=== PATIENT | male | born 1940 | race Caucasian/White ===

== ENCOUNTER 2018-10-29 10:57 | Emergency (ER) | payer MEDICARE ==
[~2018-10-29] VITALS: Ht 182.9 cm; Wt 100.0 kg
[~2018-10-29 10:57] MED LIST: ASPIRIN PO; CIPROFLOXACN500 MG PO; CLARITIN10 MG PO; GNP KRILL OIL O1 CAP PO; LEVOTHYROXIN150 MCG PO; LISINOPRIL20 MG PO; METOPROL TAR25 MG PO; NEXIUM20 MG PO; PERCOCET 5/321 COMBO PO; POTASSIUM GLUC550 M1 PO; PREDNISONE10 MG PO; SIMVASTATIN40 MG PO; TYLENOL # 31 TA1 PO; VENTOLIN HF1 IN; ZPAK PO
[2018-10-29 13:28] LABS: IMMATURE GRANULOCYTES 1.3 % (0.0-5.0); MEAN CORPUSCULAR HGB 28.4 pG CALC (26.0-32.0); MEAN CORPUSCULAR HGB CONC 33.6 g/L CALC (32.0-36.0); RED BLOOD COUNT 5.91 mill/uL (4.70-6.10); RED CELL DISTRI WIDTH 13.1 % (11.5-15.5)
[2018-10-29 13:36] LABS: HEMOGLOBIN 16.8 g/dl (14.0-18.0); MEAN CELL VOLUME 84.6 fL CALC (80.0-100.0)
[2018-10-29 13:44] LABS: ALBUMIN 3.9 g/dL (3.2-5.0); ALKALINE PHOSPHATASE 60 u/l (38-126); ANION GAP 14 (6-22 (CALC)); BILIRUBIN, TOTAL 0.7 mg/dL (0.0-1.4); BUN 18 mg/dL (8-23); BUN/CREATININE RATIO 14 (12-20 (CALC)); CARBON DIOXIDE 27 mmol/l (22-30); CHLORIDE 104 mmol/l (95-108); CREATININE 1.3 mg/dL (0.7-1.3); GFR 54 ML/MIN (>=60 (CALC)); GFR FOR AFR.AMER. > 60 ML/MIN (>=60 (CALC)); SGOT/AST 34 u/l (19-48); SODIUM 140 mmol/l (137-146); TOTAL PROTEIN 6.9 g/dL (6.3-8.2)
[2018-10-29] MEDS ORDERED: CLEOCIN300 MG PO (15:24)
[2018-10-29 15:57] VITALS: BP 160/82
== END 2018-10-29 16:15 | disposition home or self-care (01) ==
LOC: ED 10:57
DX: T81.49XA Infection following a procedure, other surgical site, initial encounter (principal); Z93.3 Colostomy status
CPT/HCPCS: Q9967

== ENCOUNTER 2018-12-16 08:58 | Outpatient (RCR) | payer MEDICARE ==
[~2018-12-16 08:58] MED LIST changes: +CLEOCIN300 MG PO
== END 2018-12-16 11:19 | disposition home or self-care (01) ==
LOC: OPWC 08:58
PROVIDERS: ATTEND Surgery
DX: L98.499 Non-pressure chronic ulcer of skin of other sites with unspecified severity (principal); L03.311 Cellulitis of abdominal wall; B37.9 Candidiasis, unspecified; Z93.2 Ileostomy status; E66.9 Obesity, unspecified
CPT/HCPCS: A6021; A6210

== ENCOUNTER 2021-11-24 10:06 | Emergency (ER) | payer MEDICARE ==
[~2021-11-24] VITALS: Ht 182.9 cm; Wt 105.0 kg
[2021-11-24] MEDS ORDERED: IMODIUM2 MG PO (11:37)
[2021-11-24] MEDS ORDERED: PREDNISONE50 MG PO (13:23)
[2021-11-24] MEDS ORDERED: OMNI-PAC300 MG PO (13:23)
[2021-11-24 13:56] VITALS: BP 142/85
== END 2021-11-24 13:56 | disposition home or self-care (01) ==
LOC: ED 10:06
DX: L03.116 Cellulitis of left lower limb (principal); I10 Essential (primary) hypertension; Z95.1 Presence of aortocoronary bypass graft; Z90.49 Acquired absence of other specified parts of digestive tract; M79.672 Pain in left foot; M79.89 Other specified soft tissue disorders